=== PATIENT | male | born 1990 | race African-American/Black ===

== ENCOUNTER 2020-08-24 14:29 | Emergency (ER) | payer BC, SELFPAY ==
[2020-08-24 12:34] VITALS: BP 125/49; PULSE 94; RESP 18; TEMP 36.4; O2SAT 100
[2020-08-24 13:15] LABS: Basophils Percent Auto 0.1 % (0.2-1.2); Hematocrit 43.5 % (42.0-52.0); Hemoglobin 14.2 g/dL (14.0-18.0); Immature Granulocyte Absolute 0.03 K/mm3 (0.00-0.031); Immature Granulocyte Percent A 0.3 % (0-0.5); Lymphocytes Absolute Auto 1.05 K/mm3 (0.9-3.2); Lymphocytes Percent Auto 10.8 % (18.3-44.2); Mean Corpuscular HGB Conc 32.6 g/dl (32-36); Mean Corpuscular Hemoglobin 27.5 pg (26-34); Mean Corpuscular Volume 84.1 fl (80-100); Mean Platelet Volume 9.3 fl (7.4-10.4); Monocytes Absolute Auto 0.7 K/mm3 (0.1-0.6); Monocytes Percent Auto 6.9 % (2.6-8.5); Neutrophils Absolute Auto 7.9 K/mm3 (1.3-6.7); Neutrophils Percent Auto 81.9 % (45.5-73.1); Platelet Count Result 280 k/mm3 (150-375); Red Blood Count 5.17 M/mm3 (4.6-6.20); Red Cell Distribution Width 12.4 % (11.5-14.5); White Blood Count 9.7 K/mm3 (4.5-10.0)
[2020-08-24 13:31] LABS: Albumin Level 4.6 g/dL (3.5-5.1); Alkaline Phosphatase 69 U/L (38-126); Anion Gap 11 mmol/L (8-16); Aspartate Amino Transferase 32 U/L (17-59); Bilirubin,Total 0.8 mg/dL (0.2-1.3); Blood Urea Nitrogen 12 mg/dL (9-20); Calcium 9.4 mg/dL (8.4-10.2); Carbon Dioxide 22 mmol/L (22-30); Chloride 107 mmol/L (98-107); Estimated CRCL calculation 105 ml/min; Estimated Glomerular Filt Rate > 60; Glucose 115 mg/dL (75-110); Lipase 43 U/L (23-300); Potassium 3.8 mmol/L (3.4-5.0); Sodium 140 mmol/L (137-145)
[2020-08-24 13:33] LABS: Alanine Aminotransferase 26 U/L (4-50)
[2020-08-24] MEDS: FAMOTIDINE 20 MG/2 ML VIAL IV PUSH (13:39)
[2020-08-24] MEDS: SODIUM CHLORIDE 0.9% IV 1,000 ML 999 ML IV CONT (13:39)
[2020-08-24] MEDS: ONDANSETRON INJ 4 MG/2 ML VIAL IV PUSH (13:39)
[2020-08-24 14:45] LABS: Add Urine Microscopic? YES; Appearance Urine Clear (Clear); Bacteria Urine Trace /hpf; Bilirubin Urine Negative (Negative); Blood Urine Negative (Negative); Color Urine Yellow (Yellow); Glucose Urine UA Negative (Negative); Ketones Urine 1+ mg/dL (Negative); Leukocyte Esterase Ur Negative LEU/UL (Negative); Mucus Urine Few /lpf; Nitrate Urine Negative (Negative); Protein Urine 2+ mg/dL (Negative); Specific Grav Ur 1.029 (1.001-1.035); Squamous Epithelial Cell Urine Rare /hpf (Few); Urobilinogen Urine Negative mg/dL (<2.0); WBC Urine 0-3 /hpf
--- NOTE | 2020-08-24 14:51 | ED.GENADULT ---
HPI - General Adult General Chief complaint: Nausea/Vomiting/Diarrhea Stated complaint: n/v Source: patient and family Mode of arrival: ambulatory Limitations: no limitations History of Present Illness HPI narrative: Patient is a 30-year-old male who presents with GI upset with vomiting diarrhea began this morning patient notes that he began to have emesis this morning upon waking patient notes he did drink alcohol last night patient is not taken anything for his symptoms denies sick contacts patient has not taken anything for his symptoms notes moderate aching pain to the abdomen worse with vomiting Related Data Allergies Allergy/AdvReac Type Severity Reaction Status Date / Time No Known Allergies Allergy Unverified 08/02/16 22:33 Review of Systems Review of Systems: All systems reviewed & are unremarkable except as noted in HPI and below PMFSH Social History Social History (Updated 08/24/20 @ 14:53 by Chris Burleson PA-C) Alcohol intake: current Gender identity (if verbalized by the patient): Male Exam Narrative: Exam Narrative: GENERAL: Ill-appearing, well-nourished, and in no acute distress. HEAD: Normocephalic, atraumatic. EYES: PERRLA and EOMI. ENT: Nares clear, no rhinorrhea or epistaxis. Mucous membranes moist. CHEST: Clear to auscultation. No respiratory distress. No wheezes rales or rhonchi HEART: Regular rate and rhythm. No murmur heard. Normal peripheral pulses. ABDOMEN: Soft, generalized tenderness, nondistended EXTREMITIES: Normal range of motion. No edema. SKIN: Warm, dry, no rash. NEURO: No focal deficits. Alert and oriented x3. Cranial nerves II through XII grossly intact PSYCH: Normal mood and affect. Course Course Emergency Course: Patient evaluated in the emergency department likely either alcohol intoxication or gastroenteritis as etiology was hydrated medicated blood work obtained no high risk changes patient is feeling much better at this time tolerating p.o. intake felt appropriate for outpatient reevaluation ABCs and vital signs intact and stable. Vital Signs Vital signs: Vital Signs Temperature 97.6 F 08/24/20 12:34 Pulse Rate 94 08/24/20 12:34 Respiratory Rate 18 08/24/20 12:34 Blood Pressure 125/49 L 08/24/20 12:34 Pulse Oximetry 100 08/24/20 12:34 Temperature 97.6 F 08/24/20 12:34 Pulse Rate 94 03/20/21 12:34 Respiratory Rate 18 08/24/20 12:34 Blood Pressure 125/49 L 08/24/20 12:34 Pulse Oximetry 100 08/24/20 12:34 Medical Decision Making MDM Narrative Medical decision making narrative: Patient evaluated in the emergency department treated hemodynamically stable afebrile nontoxic-appearing no distress without emesis felt appropriate for outpatient reevaluation patient feels comfortable with this plan Vital Signs Vital Signs: Vital Signs Temperature 97.6 F 08/24/20 12:34 Pulse Rate 94 08/24/20 12:34 Respiratory Rate 18 08/24/20 12:34 Blood Pressure 125/49 L 08/24/20 12:34 Pulse Oximetry 100 08/24/20 12:34 Temperature 97.6 F 08/24/20 12:34 Pulse Rate 94 08/24/20 12:34 Respiratory Rate 18 08/24/20 12:34 Blood Pressure 125/49 L 08/24/20 12:34 Pulse Oximetry 100 08/24/20 12:34 Lab Data Result diagrams: 08/24/20 12:43 08/24/20 12:43 Labs: Lab Results 08/24/20 08/24/20 08/24/20 Range/Units 12:43 12:43 14:32 WBC 9.7 (4.5-10.0) K/mm3 RBC 5.17 (4.6-6.20) M/mm3 Hgb 14.2 (14.0-18.0) g/dL Hct 43.5 (42.0-52.0) % MCV 84.1 (80-100) fl MCH 27.5 (26-34) pg MCHC 32.6 (32-36) g/dl RDW 12.4 (11.5-14.5) % Plt Count 280 (150-375) k/mm3 MPV 9.3 (7.4-10.4) fl Immature Gran % (Auto) 0.3 (0-0.5) % Neut % (Auto) 81.9 H (45.5-73.1) % Lymph % (Auto) 10.8 L (18.3-44.2) % Davidson % (Auto) 6.9 (2.6-8.5) % Eos % (Auto) 0.0 (0-4.4) % Baso % (Auto) 0.1 L (0.2-1.2) % Lymph # (Auto) 1.05 (0.9-3.2) K/mm3 Mon
[2020-08-24 15:08] VITALS: BP 119/70; PULSE 80; RESP 16; O2SAT 100
== END 2020-08-24 15:09 | disposition home or self-care (01) ==
PROVIDERS: Emergency Provider Emergency Medicine; PCP Family Medicine
DX: R10.9 Unspecified abdominal pain (principal)
CPT/HCPCS: 36415; 80053; 81001; 83690; 85025; 96361; 96374; 96375; 99284; J2405; J7030

== ENCOUNTER 2020-10-23 08:36 | Emergency (ER) | payer BC, SELFPAY ==
[2020-10-23] VITALS (13 sets, daily range): BP systolic 103–144; BP diastolic 49–88; PULSE 67–93; RESP 10–23; TEMP 36.5; O2SAT 98–100
[2020-10-23 09:05] LABS: Basophils Percent Auto 0.1 % (0.2-1.2); Hematocrit 45.5 % (42.0-52.0); Hemoglobin 14.9 g/dL (14.0-18.0); Immature Granulocyte Absolute 0.08 K/mm3 (0.00-0.031); Immature Granulocyte Percent A 0.5 % (0-0.5); Lymphocytes Absolute Auto 0.65 K/mm3 (0.9-3.2); Lymphocytes Percent Auto 4.3 % (18.3-44.2); Mean Corpuscular HGB Conc 32.7 g/dl (32-36); Mean Corpuscular Hemoglobin 27.9 pg (26-34); Mean Platelet Volume 9.4 fl (7.4-10.4); Monocytes Absolute Auto 0.3 K/mm3 (0.1-0.6); Neutrophils Absolute Auto 14.2 K/mm3 (1.3-6.7); Neutrophils Percent Auto 93.1 % (45.5-73.1); Platelet Count Result 254 k/mm3 (150-375); Red Blood Count 5.35 M/mm3 (4.6-6.20); Red Cell Distribution Width 12.6 % (11.5-14.5); White Blood Count 15.3 K/mm3 (4.5-10.0)
[2020-10-23 09:11] LABS: Albumin Level 4.8 g/dL (3.5-5.1); Alkaline Phosphatase 54 U/L (38-126); Anion Gap 11 mmol/L (8-16); Aspartate Amino Transferase 34 U/L (17-59); Bilirubin,Total 0.7 mg/dL (0.2-1.3); Blood Urea Nitrogen 13 mg/dL (9-20); Calcium 10.2 mg/dL (8.4-10.2); Carbon Dioxide 25 mmol/L (22-30); Chloride 101 mmol/L (98-107); Estimated CRCL calculation 109 ml/min; Estimated Glomerular Filt Rate > 60; Glucose 143 mg/dL (75-110); Lipase 39 U/L (23-300); Potassium 4.3 mmol/L (3.4-5.0); Sodium 137 mmol/L (137-145)
[2020-10-23 09:12] LABS: Alanine Aminotransferase 32 U/L (4-50)
[2020-10-23 09:46] LABS: Add Urine Microscopic? YES; Appearance Urine Clear (Clear); Bilirubin Urine Negative (Negative); Blood Urine Negative (Negative); Color Urine Yellow (Yellow); Glucose Urine UA Negative (Negative); Ketones Urine Trace mg/dL (Negative); Leukocyte Esterase Ur Negative LEU/UL (Negative); Mucus Urine Rare /lpf; Nitrate Urine Negative (Negative); Protein Urine 2+ mg/dL (Negative); Specific Grav Ur 1.028 (1.001-1.035); Squamous Epithelial Cell Urine Rare /hpf (Few); Urobilinogen Urine Negative mg/dL (<2.0); WBC Urine 0-3 /hpf
[2020-10-23] MEDS: HYOSCYAMINE SULFATE 0.125 MG TABLET PO (10:31)
[2020-10-23] MEDS: FAMOTIDINE 20 MG/2 ML VIAL IV PUSH (10:31)
[2020-10-23] MEDS: LACTATED RINGERS 1,000 ML 999 ML IV CONT (10:31)
[2020-10-23] MEDS: ONDANSETRON INJ 4 MG/2 ML VIAL IV PUSH (10:31)
--- NOTE | 2020-10-23 10:55 | ED.GENADULT ---
HPI - General Adult General Chief complaint: Abdominal Pain Stated complaint: I believe i have the stomach flu Time Seen by Provider: 10/23/20 09:02 Source: patient, family and RN notes reviewed Mode of arrival: ambulatory Limitations: no limitations History of Present Illness HPI narrative: Patient is a 30-year-old male who presents with vomiting and diarrhea that began acutely after eating [place] food last night with episodes of both with cramping of the abdomen has not taken anything for his symptoms presents with inability to tolerate p.o. intake patient on arrival appears uncomfortable but not distressed denies other individuals with similar occurrence or sick contacts Related Data Allergies Allergy/AdvReac Type Severity Reaction Status Date / Time No Known Allergies Allergy Verified 10/23/20 08:52 Review of Systems Review of Systems: All systems reviewed & are unremarkable except as noted in HPI and below PMFSH Social History Social History Alcohol intake: current Gender identity (if verbalized by the patient): Male Exam Narrative: Exam Narrative: GENERAL: Ill-appearing, well-nourished, and in no acute distress. HEAD: Normocephalic, atraumatic. EYES: PERRLA and EOMI. ENT: Nares clear, no rhinorrhea or epistaxis. Mucous membranes moist. CHEST: Clear to auscultation. No respiratory distress. No wheezes rales or rhonchi HEART: Regular rate and rhythm. No murmur heard. Normal peripheral pulses. ABDOMEN: Soft, generalized tenderness of the abdomen, nondistended, normal active bowel sounds. EXTREMITIES: Normal range of motion. No edema. SKIN: Warm, dry, no rash. NEURO: No focal deficits. Alert and oriented x3. Cranial nerves II through XII grossly intact PSYCH: Normal mood and affect. Course Course Emergency Course: Patient in the room no distress aware of case findings treatment plan and diagnosis was medicated with improvement tolerating p.o. intake patient is afebrile nontoxic-appearing in no distress Vital Signs Vital signs: Vital Signs Temperature 97.7 F 10/23/20 08:42 Pulse Rate 93 10/23/20 08:42 Respiratory Rate 20 10/23/20 08:42 Blood Pressure 144/64 H 10/23/20 08:42 Pulse Oximetry 100 10/23/20 08:42 Temperature 97.7 F 10/23/20 08:42 Pulse Rate 86 10/23/20 08:51 Respiratory Rate 17 10/23/20 08:51 Blood Pressure 137/73 10/23/20 08:51 Pulse Oximetry 100 10/23/20 08:51 Medical Decision Making MDM Narrative Medical decision making narrative: Patient symptoms have resolved at this point he is tolerating p.o. intake will be discharged with primary care follow-up given medications for his symptoms patient agrees with this plan and feels comfortable with this Vital Signs Vital Signs: Vital Signs Temperature 97.7 F 10/23/20 08:42 Pulse Rate 93 10/23/20 08:42 Respiratory Rate 20 10/23/20 08:42 Blood Pressure 144/64 H 10/23/20 08:42 Pulse Oximetry 100 10/23/20 08:42 Temperature 97.7 F 10/23/20 08:42 Pulse Rate 86 10/23/20 08:51 Respiratory Rate 17 10/23/20 08:51 Blood Pressure 137/73 10/23/20 08:51 Pulse Oximetry 100 10/23/20 08:51 Lab Data Result diagrams: 10/23/20 08:50 10/23/20 08:50 Labs: Lab Results 10/23/20 10/23/20 10/23/20 Range/Units 08:50 08:50 09:33 WBC 15.3 H (4.5-10.0) K/mm3 RBC 5.35 (4.6-6.20) M/mm3 Hgb 14.9 (14.0-18.0) g/dL Hct 45.5 (42.0-52.0) % MCV 85.0 (80-100) fl MCH 27.9 (26-34) pg MCHC 32.7 (32-36) g/dl RDW 12.6 (11.5-14.5) % Plt Count 254 (150-375) k/mm3 MPV 9.4 (7.4-10.4) fl Immature Gran % (Auto) 0.5 (0-0.5) % Neut % (Auto) 93.1 H (45.5-73.1) % Lymph % (Auto) 4.3 L (18.3-44.2) % Grand % (Auto) 2.0 L (2.6-8.5) % Eos % (Auto) 0.0 (0-4.4) % Baso % (Auto) 0.1 L (0.2-1.2) % Lymph # (Auto) 0.65 L (0.9-3.2) K/mm3 Grand # (Auto) 0.3
--- NOTE | 2020-10-23 10:56 | PC.NURSE ---
Assumed care of pt from ASHLEY Sanchez
== END 2020-10-23 12:00 | disposition home or self-care (01) ==
PROVIDERS: Emergency Provider Emergency Medicine
DX: R10.9 Unspecified abdominal pain (principal)
CPT/HCPCS: 36415; 80053; 81001; 83690; 85025; 96361; 96365; 96375; 99284; A9270; J0131; J2405; J7120

== ENCOUNTER 2021-03-10 14:57 | Emergency (ER) | payer BC, SELFPAY ==
[2021-03-10 15:07] VITALS: BP 115/72; PULSE 83; RESP 16; TEMP 36.9; O2SAT 100
--- NOTE | 2021-03-10 15:18 | ED.UPPEXIN ---
HPI - Extremity Injury (Upper) General Chief Complaint: Extremity Injury, Upper Stated Complaint: Right shoulder Pain Time Seen by Provider: 03/10/21 15:15 Source: patient and RN notes reviewed Mode of arrival: ambulatory Limitations: no limitations History of Present Illness HPI narrative: Patient states he woke up three days ago with right shoulder pain, states he is unable to move his right shoulder above half way due to burning pain. States he has not used any OTC measures. States movement or laying on right side makes pain worse. States pain is 7/10 at rest. He denies any injury to area. 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 MD complaint: injury to: right and shoulder Related Data Allergies Allergy/AdvReac Type Severity Reaction Status Date / Time No Known Allergies Allergy Verified 10/23/20 08:52 Review of Systems Review of Systems: CONSTITUTIONAL: Denies body aches, fever, chills, or sweats. EYES: Denies visual changes, redness, or discharge. ENT: Denies rhinorrhea, congestion, sore throat, or otalgia. CARDIOVASCULAR: Denies chest pain, palpitations, or edema. RESPIRATORY: Denies cough or dyspnea. GASTROINTESTINAL: Denies abdominal pain, nausea, vomiting, or diarrhea. GENITOURINARY: Denies dysuria or hematuria. SKIN: Denies rash, itching, or wounds. MUSCULOSKELETAL: + right shoulder pain, NEUROLOGIC: Denies headache, numbness, tingling, or weakness. PSYCH: Denies depression or anxiety. PMFSH Social History Social History Alcohol intake: current Gender identity (if verbalized by the patient): Male Comments At time of signature, I have reviewed and agree with nursing past medical, surgical, social and family history unless otherwise noted. Please see nursing chart for further information. There is no relevant family history pertinent to the presenting complaint. Exam Narrative: GENERAL: Well-appearing, well-nourished, and in no acute distress. HEAD: Normocephalic, atraumatic. EYES: EOMI. No redness or drainage. Conjunctivae normal. ENT: Mucous membranes pink and moist. Nares clear. No rhinorrhea. TMs normal bilaterally. Throat normal. Uvula midline. NECK: Normal AROM. Supple. MUSCULOSKELETAL: No bony tenderness. EXTREMITIES: tenderness with palpation right trapezius, decreased AROM right shoulder due to pain, sensation intact SKIN: Warm, dry, no rash. Capillary refill normal. Normal skin turgor. NEURO: No focal deficits. Alert and oriented x3. Gait steady. PSYCH: Normal affect. No signs of depression or anxiety. Course Vital Signs Vital signs: Vital Signs Temperature 98.5 F 03/10/21 15:07 Pulse Rate 83 03/10/21 15:07 Respiratory Rate 16 03/10/21 15:07 Blood Pressure 115/72 03/10/21 15:07 Pulse Oximetry 100 03/10/21 15:07 Temperature 98.5 F 03/10/21 15:07 Pulse Rate 83 03/10/21 15:07 Respiratory Rate 16 03/10/21 15:07 Blood Pressure 115/72 03/10/21 15:07 Pulse Oximetry 100 03/10/21 15:07 Reviewed. MDM - Extremity Injury (Upper) Differential Diagnosis Differential diagnosis: Likely dislocation of shoulder, fracture of humerus and fracture of clavicle Critical Care Time Critical Care Time Critical Care Time: No Discharge Plan Discharge Clinical Impression: Strain of right trapezius muscle Qualifiers: Encounter type: initial encounter Qualified Code(s): S46.811A - Strain of other muscles, fascia and tendons at shoulder and upper arm level, right arm, initial encounter Patient Disposition: Home, Self-Care Condition: Stable Instructions: Muscle Strain (ED) Additional Instructions: Take all medications as prescribed. Do not drive within 8 hours of Flexeril; it can make you drowsy. Start Steroids tomorrow because they can keep you awake at night. Follow up with your primary care physician in one week if symptoms do not improve. Patient Language
== END 2021-03-10 15:34 | disposition home or self-care (01) ==
PROVIDERS: Emergency Provider Nurse Practitioner
DX: S46.911A Strain of unspecified muscle, fascia and tendon at shoulder and upper arm level, right arm, initial encounter (principal); X58.XXXA Exposure to other specified factors, initial encounter
CPT/HCPCS: 99213; G0463

== ENCOUNTER 2023-08-05 14:39 | Emergency (ER) | payer BC, SELFPAY ==
[2023-08-05 15:06] VITALS: BP 140/81; PULSE 73; RESP 16; TEMP 37; O2SAT 100
--- NOTE | 2023-08-05 16:04 | ED.GENADULT ---
HPI - General Adult General Chief complaint: Upper Respiratory Infection Stated complaint: R FACE SWELLING X 3D Time Seen by Provider: 08/05/23 16:01 Source: patient Mode of arrival: ambulatory Limitations: no limitations History of Present Illness HPI narrative: 33 yo presents with right facial swelling x 3 days. He woke up and noticed it swollen and painful 3 days ago. No evidence of a bite/scratch. He does have watery eyes/bilateral. Denies any dental pain. Feels that his sinuses might be congested. Denies any drainage, fever. Took XS Tylenol. He does note the swelling has started to go down. No new medications. No nasal pain, paresthesias. Related Data Allergies Allergy/AdvReac Type Severity Reaction Status Date / Time No Known Allergies Allergy Verified 08/05/23 15:36 [facility] Social History Social History Alcohol intake: current Gender identity (if verbalized by the patient): Male Exam Narrative: GENERAL: Well-appearing, well-nourished, and in no acute distress. HEAD: Normocephalic, atraumatic. Right sided facial swelling. Does not extend into periorbital space but does distort nasolabial fold. No fluctuance/induration. No overlying skin changes. EYES: Non injected, non icteric ENT: Nares clear, no rhinorrhea or epistaxis. Turbinates with slight erythema. No pain to percussion of teeth. No gum pain/tenderness. No evidence of intraoral abscess. Bilateral TMs visible and normal. No external auditory canal abnormalities. Preauricular and mastoid areas normal. NECK: Supple. CHEST: Speaking in full sentences. No respiratory distress. HEART: Regular rate and rhythm. . ABDOMEN: Soft, nondistended. EXTREMITIES: Normal range of motion. No edema. SKIN: Warm, dry, no rash. NEURO: No focal deficits. Alert and oriented x3. PSYCH: Normal mood and affect. Course Vital Signs Vital signs: Vital Signs Temperature 98.6 F 08/05/23 15:06 Pulse Rate 73 08/05/23 15:06 Respiratory Rate 16 08/05/23 15:06 Blood Pressure 140/81 08/05/23 15:06 Pulse Oximetry 100 08/05/23 15:06 Temperature 98.1 F 08/05/23 16:50 Pulse Rate 67 08/05/23 16:50 Respiratory Rate 16 08/05/23 16:50 Blood Pressure 128/90 08/05/23 16:50 Pulse Oximetry 100 08/05/23 16:50 Medical Decision Making MDM Narrative Medical decision making narrative: Patient presents with right sided facial swelling and pain. In the ED his vital signs are within normal limits. His physical exam is benign as source does not appear to be intraoral. Nasal and ear exams also unremarkable. Face is slightly swollen but without extension to eye and no appreciable induration. I did use POCUS (point of care ultrasound) but no distinct fluid collection nor evidence of cellulitis. Suspect inflammation /allergic rather than infectious so will be discharged home with Rx for this but advised to return with new/worsening sympmots. Does not have a PCP so given name of one for follw up. Differential Diagnosis Differential Diagnosis: dental abscess/infection, allergic reaction/anaphylaxis; considered Bossman angina/angioedema/cellulitis/preseptal / orbital cellulitis Vital Signs Vital Signs: Vital Signs Temperature 98.6 F 08/05/23 15:06 Pulse Rate 73 08/05/23 15:06 Respiratory Rate 16 08/05/23 15:06 Blood Pressure 140/81 08/05/23 15:06 Pulse Oximetry 100 08/05/23 15:06 Temperature 98.1 F 08/05/23 16:50 Pulse Rate 67 08/05/23 16:50 Respiratory Rate 16 08/05/23 16:50 Blood Pressure 128/90 08/05/23 16:50 Pulse Oximetry 100 08/05/23 16:50 Discharge Plan Discharge Clinical Impression: Swelling of right side of face Patient Disposition: Home, Self-Care Condition: Stable Instructions: Antibiotic Form, Allergies (ED) Additional Instructions: As we discussed, this appears to be swelling likely due to allergies. You are being prescribed pa
[2023-08-05] MEDS: IBUPROFEN 600 MG TABLET PO (16:27)
[2023-08-05] MEDS: ACETAMINOPHEN 500 MG TABLET 1000 MG PO (16:27)
[2023-08-05] MEDS: LORATADINE 5 MG TABLET PO (16:49)
[2023-08-05 16:50] VITALS: BP 128/90; PULSE 67; RESP 16; TEMP 36.7; O2SAT 100
== END 2023-08-05 16:52 | disposition home or self-care (01) ==
LOC: ANHED 16:29
PROVIDERS: Emergency Provider Student in an Organized Health Care Education/Training Program
DX: R22.0 Localized swelling, mass and lump, head (principal)
CPT/HCPCS: 99283; A9270